=== PATIENT | female | born 1980 | race Hispanic/Latino ===

== ENCOUNTER 2020-02-15 18:07 | Emergency (ER) | payer SELFPAY ==
[2020-02-15] MEDS ORDERED: Ibuprofen 400 MG TAB ONE (18:34)
== END 2020-02-15 18:42 | disposition home or self-care (01) ==
LOC: MADERS 18:07
DX: S01.81XA Laceration without foreign body of other part of head, initial encounter (principal); S00.03XA Contusion of scalp, initial encounter; X58.XXXA Exposure to other specified factors, initial encounter
CPT/HCPCS: 12011